=== PATIENT | female | born 1930 | race Caucasian/White ===

== ENCOUNTER 2017-08-22 23:21 | Emergency (ER) | payer MEDICARE, MEDICAID ==
[2017-08-23 00:40] LABS: ADD MAN DIFF? NO
[2017-08-23 00:48] LABS: WHITE BLOOD COUNT 12.6 10^3/ul (4.8-10.8)
[2017-08-23 00:48] LABS: ABNORMAL IP MESSAGE 1; BASOPHILS % 0.2 % (0.0-2.0); EOSINOPHILS # 0.1 10^3/ul (0.0-0.5); EOSINOPHILS % 0.8 % (0.0-7.0); HEMATOCRIT 38.2 % (37.0-47.0); HEMOGLOBIN 12.2 g/dl (12.0-16.0); LYMPHOCYTES # 0.6 10^3/ul (0.8-2.9); MEAN CORPUSCULAR HEMOGLOBIN 28.9 pg (29.0-33.0); MEAN CORPUSCULAR HGB CONC 31.9 g/dl (32.0-37.0); MEAN CORPUSCULAR VOLUME 90.5 fl (82.0-101.0); MEAN PLATELET VOLUME 11.4 fl (7.4-10.4); MONOCYTE # 1.5 10^3/ul (0.3-0.9); MONOCYTES % 12.2 % (0.0-11.0); NEUTROPHIL # 10.3 10^3/ul (1.6-7.5); NEUTROPHILS % 81.4 % (39.0-77.0); PLATELET COUNT 191 10^3/UL (140-415); RED BLOOD COUNT 4.22 10^6/ul (4.20-5.40); RED CELL DISTRIBUTION WIDTH 13.5 % (11.5-14.5)
[2017-08-23 01:02] LABS: URINE PH (Dip) POC 5.5 (5.0-8.5)
[2017-08-23 01:02] LABS: URINE BLOOD (Dip) POC Negative (NEGATIVE); URINE GLUCOSE (Dip) POC Negative (NEGATIVE); URINE KETONES (Dip) POC Negative (NEGATIVE); URINE LEUKOCYTE EST (Dip) POC Trace (NEGATIVE); URINE NITRITE (Dip) POC Negative (NEGATIVE); URINE TOTAL PROTEIN POC Negative (NEGATIVE)
[2017-08-23 01:08] LABS: POSITIVE DIFF @See below; URINE BLOOD (Dip) POC Negative (NEGATIVE); URINE GLUCOSE (Dip) POC Negative (NEGATIVE); URINE KETONES (Dip) POC Negative (NEGATIVE); URINE LEUKOCYTE EST (Dip) POC Trace (NEGATIVE); URINE NITRITE (Dip) POC Negative (NEGATIVE); URINE TOTAL PROTEIN POC Negative (NEGATIVE)
[2017-08-23 01:08] LABS: URINE PH (Dip) POC 5.5 (5.0-8.5)
[2017-08-23 01:39] LABS: ALANINE AMINOTRANSFERASE 22 IU/L (13-69); ALBUMIN 4.1 g/dl (3.3-4.9); ALBUMIN/GLOBULIN RATIO 1.17; ALKALINE PHOSPHATASE 71 IU/L (42-121); ANION GAP 17 (8-16); ASPARTATE AMINO TRANSFERASE 21 IU/L (15-46); BLOOD UREA NITROGEN 34 mg/dl (7-20); CALCIUM 9.4 mg/dl (8.4-10.2); CARBON DIOXIDE 27 mmol/L (21-31); CHLORIDE 104 mmol/L (97-110); CREATININE 1.73 mg/dl (0.44-1.00); GLUCOSE 136 mg/dl (70-220); LIPASE 204 U/L (23-300); SODIUM 144 mmol/L (135-144); TOTAL PROTEIN 7.6 g/dl (6.1-8.1)
[2017-08-23 01:56] LABS: TROPONIN-I < 0.012 ng/ml (0.00-0.12)
[2017-08-23] MEDS: ONDANSETRON 4 MG INJ IV (02:44)
[2017-08-23] MEDS: LOPERAMIDE 2 MG CAP PO (02:44)
[2017-08-23] MEDS: SOD CHLORIDE 0.9% 250 ML IV (02:45)
== END 2017-08-23 07:05 | disposition home or self-care (01) ==
LOC: E/R 23:21
DX: K80.50 Calculus of bile duct without cholangitis or cholecystitis without obstruction (principal); K43.9 Ventral hernia without obstruction or gangrene; D25.9 Leiomyoma of uterus, unspecified; J44.9 Chronic obstructive pulmonary disease, unspecified; E11.22 Type 2 diabetes mellitus with diabetic chronic kidney disease; N18.9 Chronic kidney disease, unspecified; E03.9 Hypothyroidism, unspecified; I12.9 Hypertensive chronic kidney disease with stage 1 through stage 4 chronic kidney disease, or unspecified chronic kidney disease; Z85.43 Personal history of malignant neoplasm of ovary; Z79.82 Long term (current) use of aspirin; Z85.038 Personal history of other malignant neoplasm of large intestine
CPT/HCPCS: 36415; 74176; 76705; 80053; 81003; 83690; 84484; 85025; 93005; 96374; 99285-25

== ENCOUNTER 2017-11-14 20:36 | Observation (INO) | payer MEDICARE, OTHER, MEDICAID ==
[2017-11-14] MEDS: SOD CHLORIDE 0.9% 1,000 ML IV (21:21)
[2017-11-14] MEDS: ONDANSETRON 4 MG INJ IV (21:21)
[2017-11-14 21:31] LABS: ADD MAN DIFF? NO
[2017-11-14 21:33] LABS: BASOPHIL # 0.1 10^3/ul (0.0-0.1); BASOPHILS % 0.7 % (0.0-2.0); EOSINOPHILS # 0.1 10^3/ul (0.0-0.5); EOSINOPHILS % 1.4 % (0.0-7.0); HEMATOCRIT 37.4 % (37.0-47.0); HEMOGLOBIN 11.9 g/dl (12.0-16.0); LYMPHOCYTES # 2.1 10^3/ul (0.8-2.9); LYMPHOCYTES % 21.9 % (15.0-51.0); MEAN CORPUSCULAR HEMOGLOBIN 28.5 pg (29.0-33.0); MEAN CORPUSCULAR HGB CONC 31.8 g/dl (32.0-37.0); MEAN CORPUSCULAR VOLUME 89.7 fl (82.0-101.0); MEAN PLATELET VOLUME 11.1 fl (7.4-10.4); MONOCYTE # 1.2 10^3/ul (0.3-0.9); MONOCYTES % 12.7 % (0.0-11.0); NEUTROPHIL # 6.1 10^3/ul (1.6-7.5); PLATELET COUNT 231 10^3/UL (140-415); RED BLOOD COUNT 4.17 10^6/ul (4.20-5.40); RED CELL DISTRIBUTION WIDTH 14.6 % (11.5-14.5)
[2017-11-14 21:33] LABS: WHITE BLOOD COUNT 9.7 10^3/ul (4.8-10.8)
[2017-11-14 22:03] LABS: ALANINE AMINOTRANSFERASE 16 IU/L (13-69); ALBUMIN 4.2 g/dl (3.3-4.9); ALBUMIN/GLOBULIN RATIO 1.16; ALKALINE PHOSPHATASE 84 IU/L (42-121); ANION GAP 16 (8-16); ASPARTATE AMINO TRANSFERASE 22 IU/L (15-46); BILIRUBIN,INDIRECT 0.4 mg/dl (0-1.1); BILIRUBIN,TOTAL 0.4 mg/dl (0.2-1.3); BLOOD UREA NITROGEN 31 mg/dl (7-20); CALCIUM 9.7 mg/dl (8.4-10.2); CARBON DIOXIDE 29 mmol/L (21-31); CHLORIDE 98 mmol/L (97-110); CREATININE 1.89 mg/dl (0.44-1.00); GLUCOSE 131 mg/dl (70-220); LIPASE 118 U/L (23-300); POTASSIUM 3.4 mmol/L (3.5-5.1); SODIUM 140 mmol/L (135-144); TOTAL PROTEIN 7.8 g/dl (6.1-8.1)
[2017-11-14 22:04] LABS: LACTIC ACID 2.2 mmol/L (0.5-2.0)
[2017-11-14 22:16] LABS: TROPONIN-I < 0.012 ng/ml (0.00-0.12)
[2017-11-14 22:48] LABS: ADD UMIC NO; UR ASCORBIC ACID NEGATIVE (NEGATIVE); UR BILIRUBIN (Dip) NEGATIVE (NEGATIVE); UR BLOOD (Dip) NEGATIVE (NEGATIVE); UR CLARITY CLEAR (CLEAR); UR COLOR STRAW (YELLOW); UR GLUCOSE (Dip) NEGATIVE (NEGATIVE); UR KETONES (Dip) NEGATIVE (NEGATIVE); UR LEUKOCYTE ESTERASE (Dip) NEGATIVE Leu/ul (NEGATIVE); UR NITRITE (Dip) NEGATIVE (NEGATIVE); UR SPECIFIC GRAVITY (Dip) 1.003 (1.003-1.030); UR TOTAL PROTEIN (Dip) NEGATIVE (NEGATIVE); UR UROBILINOGEN (Dip) NEGATIVE (NEGATIVE)
[2017-11-15] MEDS ORDERED: NACL 0.9% 3 ML SYG IV (02:00)
[2017-11-15] MEDS: SOD CHLORIDE 0.9% 1,000 ML IV ×2 (02:46→02:55)
[2017-11-15] MEDS: ONDANSETRON 4 MG INJ IV (02:52)
[2017-11-15] MEDS: morphine 4 MG/ML VIAL IV (02:53)
[2017-11-15] MEDS: METOCLOPRAMIDE 10 MG INJ IV (02:56)
[2017-11-15] MEDS: ENOXAPARIN 40 MG/0.4 ML SYG SC (12:45)
[2017-11-15 15:13] LABS: ANION GAP 11 (8-16); BLOOD UREA NITROGEN 23 mg/dl (7-20); CALCIUM 8.6 mg/dl (8.4-10.2); CARBON DIOXIDE 29 mmol/L (21-31); CHLORIDE 108 mmol/L (97-110); GLUCOSE 112 mg/dl (70-220); SODIUM 144 mmol/L (135-144)
[2017-11-15 15:30] LABS: HEMOGLOBIN A1C 5.9 % (0-5.9)
[2017-11-15 15:37] LABS: LACTIC ACID 1.8 mmol/L (0.5-2.0)
[2017-11-15] MEDS: LORAZEPAM 1 MG TAB PO (16:33)
[2017-11-15] MEDS ORDERED: FUROSEMIDE 20 MG TAB PO (21:00)
[2017-11-15] MEDS: ATORVASTATIN 20 MG TAB PO (21:27)
[2017-11-16 06:02] LABS: ADD MAN DIFF? NO
[2017-11-16 06:07] LABS: BASOPHIL # 0.1 10^3/ul (0.0-0.1); BASOPHILS % 0.6 % (0.0-2.0); EOSINOPHILS # 0.2 10^3/ul (0.0-0.5); EOSINOPHILS % 2.4 % (0.0-7.0); HEMATOCRIT 33.6 % (37.0-47.0); HEMOGLOBIN 10.4 g/dl (12.0-16.0); LYMPHOCYTES # 1.6 10^3/ul (0.8-2.9); LYMPHOCYTES % 16.3 % (15.0-51.0); MEAN CORPUSCULAR HEMOGLOBIN 28.8 pg (29.0-33.0); MEAN CORPUSCULAR VOLUME 93.1 fl (82.0-101.0); MEAN PLATELET VOLUME 11.7 fl (7.4-10.4); MONOCYTE # 1.3 10^3/ul (0.3-0.9); MONOCYTES % 13.4 % (0.0-11.0); NEUTROPHIL # 6.6 10^3/ul (1.6-7.5); NEUTROPHILS % 66.9 % (39.0-77.0); PLATELET COUNT 203 10^3/UL (140-415); RED BLOOD COUNT 3.61 10^6/ul (4.20-5.40); RED CELL DISTRIBUTION WIDTH 15.3 % (11.5-14.5)
[2017-11-16 06:07] LABS: WHITE BLOOD COUNT 9.8 10^3/ul (4.8-10.8)
[2017-11-16 06:33] LABS: ALANINE AMINOTRANSFERASE 22 IU/L (13-69); ALBUMIN 3.3 g/dl (3.3-4.9); ALBUMIN/GLOBULIN RATIO 1.13; ALKALINE PHOSPHATASE 61 IU/L (42-121); ANION GAP 12 (8-16); ASPARTATE AMINO TRANSFERASE 29 IU/L (15-46); BILIRUBIN,INDIRECT 0.4 mg/dl (0-1.1); BILIRUBIN,TOTAL 0.4 mg/dl (0.2-1.3); BLOOD UREA NITROGEN 22 mg/dl (7-20); CALCIUM 8.8 mg/dl (8.4-10.2); CARBON DIOXIDE 31 mmol/L (21-31); CHLORIDE 108 mmol/L (97-110); CREATININE 1.61 mg/dl (0.44-1.00); GLUCOSE 103 mg/dl (70-220); POTASSIUM 3.8 mmol/L (3.5-5.1); SODIUM 147 mmol/L (135-144); TOTAL PROTEIN 6.2 g/dl (6.1-8.1)
[2017-11-16] MEDS: LEVOTHYROXINE 125 MCG TAB PO (06:41)
[2017-11-16] MEDS: PAROXETINE 20 MG TAB PO (08:45)
[2017-11-16] MEDS: FEBUXOSTAT 40 MG TABLET PO (08:48)
[2017-11-16] MEDS: DONEPEZIL 5 MG TAB PO (08:48)
[2017-11-16] MEDS: NEBIVOLOL 5 MG TAB PO (08:48)
[2017-11-16] MEDS: MEMANTINE 10 MG TAB PO (08:48)
[2017-11-16] MEDS: CLOPIDOGREL 75 MG TAB PO (08:48)
[2017-11-16] MEDS ORDERED: TELMISARTAN HYDROCHLOROTHIAZIDE PO (09:00)
[2017-11-16] MEDS: ENOXAPARIN 40 MG/0.4 ML SYG SC (09:30)
[2017-11-16] MEDS: ONDANSETRON 4 MG TAB PO (14:11)
[2017-11-16] MEDS ORDERED: ONDANSETRON 4 MG INJ IV (17:30)
[2017-11-16] MEDS: ATORVASTATIN 20 MG TAB PO (20:28)
[2017-11-17 05:45] LABS: ADD MAN DIFF? NO
[2017-11-17 06:08] LABS: WHITE BLOOD COUNT 9.4 10^3/ul (4.8-10.8)
[2017-11-17 06:08] LABS: BASOPHIL # 0.1 10^3/ul (0.0-0.1); BASOPHILS % 0.6 % (0.0-2.0); EOSINOPHILS # 0.1 10^3/ul (0.0-0.5); EOSINOPHILS % 1.2 % (0.0-7.0); HEMATOCRIT 31.8 % (37.0-47.0); HEMOGLOBIN 10.1 g/dl (12.0-16.0); LYMPHOCYTES # 1.4 10^3/ul (0.8-2.9); LYMPHOCYTES % 14.9 % (15.0-51.0); MEAN CORPUSCULAR HEMOGLOBIN 29.4 pg (29.0-33.0); MEAN CORPUSCULAR HGB CONC 31.8 g/dl (32.0-37.0); MEAN CORPUSCULAR VOLUME 92.7 fl (82.0-101.0); MEAN PLATELET VOLUME 12.3 fl (7.4-10.4); MONOCYTES % 10.7 % (0.0-11.0); NEUTROPHIL # 6.8 10^3/ul (1.6-7.5); NEUTROPHILS % 72.2 % (39.0-77.0); PLATELET COUNT 172 10^3/UL (140-415); RED BLOOD COUNT 3.43 10^6/ul (4.20-5.40); RED CELL DISTRIBUTION WIDTH 15.1 % (11.5-14.5)
[2017-11-17 06:49] LABS: ALANINE AMINOTRANSFERASE 22 IU/L (13-69); ALBUMIN 2.9 g/dl (3.3-4.9); ALBUMIN/GLOBULIN RATIO 1.03; ALKALINE PHOSPHATASE 58 IU/L (42-121); ASPARTATE AMINO TRANSFERASE 28 IU/L (15-46); BILIRUBIN,INDIRECT 0.3 mg/dl (0-1.1); BILIRUBIN,TOTAL 0.3 mg/dl (0.2-1.3); BLOOD UREA NITROGEN 23 mg/dl (7-20); CALCIUM 8.6 mg/dl (8.4-10.2); CARBON DIOXIDE 29 mmol/L (21-31); CREATININE 1.47 mg/dl (0.44-1.00); GLUCOSE 114 mg/dl (70-220); TOTAL PROTEIN 5.7 g/dl (6.1-8.1)
[2017-11-17] MEDS: LEVOTHYROXINE 125 MCG TAB PO (06:55)
[2017-11-17 07:48] LABS: ANION GAP 8 (8-16)
[2017-11-17 07:50] LABS: CHLORIDE 110 mmol/L (97-110); POTASSIUM 4.3 mmol/L (3.5-5.1); SODIUM 143 mmol/L (135-144)
[2017-11-17] MEDS: PAROXETINE 20 MG TAB PO (09:15)
[2017-11-17] MEDS: FEBUXOSTAT 40 MG TABLET PO (09:15)
[2017-11-17] MEDS: CLOPIDOGREL 75 MG TAB PO (09:15)
[2017-11-17] MEDS: NEBIVOLOL 5 MG TAB PO (09:15)
[2017-11-17] MEDS: DONEPEZIL 5 MG TAB PO (09:16)
[2017-11-17] MEDS: MEMANTINE 10 MG TAB PO (09:16)
[2017-11-17] MEDS: ENOXAPARIN 40 MG/0.4 ML SYG SC (09:18)
[2017-11-17] MEDS: ATORVASTATIN 20 MG TAB PO (20:02)
== END 2017-11-17 20:15 | disposition home or self-care (01) ==
LOC: MS2 11-15 08:03 → E/R 20:36
PROVIDERS: Internal Medicine
DX: R11.2 Nausea with vomiting, unspecified (principal); I10 Essential (primary) hypertension; E78.00 Pure hypercholesterolemia, unspecified; E11.9 Type 2 diabetes mellitus without complications; K43.9 Ventral hernia without obstruction or gangrene; M81.0 Age-related osteoporosis without current pathological fracture; Z85.038 Personal history of other malignant neoplasm of large intestine; Z82.49 Family history of ischemic heart disease and other diseases of the circulatory system
CPT/HCPCS: 36415; 71045; 74176; 76705; 80048; 80053; 81003; 82962; 83036; 83605; 83690; 84443; 84484; 85025; 93005; 96374; 96375; 96376; 99285-25

== ENCOUNTER 2018-08-28 18:48 | Emergency (ER) | payer MEDICARE, OTHER ==
[2018-08-28 19:29] LABS: ADD MAN DIFF? NO
[2018-08-28] MEDS: SOD CHLORIDE 0.9% 1,000 ML IV (19:29)
[2018-08-28 19:32] LABS: BASOPHIL # 0.1 10^3/ul (0.0-0.1); BASOPHILS % 0.6 % (0.0-2.0); EOSINOPHILS # 0.1 10^3/ul (0.0-0.5); EOSINOPHILS % 1.2 % (0.0-7.0); HEMATOCRIT 33.2 % (37.0-47.0); HEMOGLOBIN 10.7 g/dl (12.0-16.0); LYMPHOCYTES # 1.7 10^3/ul (0.8-2.9); LYMPHOCYTES % 18.8 % (15.0-51.0); MEAN CORPUSCULAR HEMOGLOBIN 28.4 pg (29.0-33.0); MEAN CORPUSCULAR HGB CONC 32.2 g/dl (32.0-37.0); MEAN CORPUSCULAR VOLUME 88.1 fl (82.0-101.0); MEAN PLATELET VOLUME 11.7 fl (7.4-10.4); MONOCYTE # 1.3 10^3/ul (0.3-0.9); MONOCYTES % 14.5 % (0.0-11.0); NEUTROPHIL # 5.8 10^3/ul (1.6-7.5); NEUTROPHILS % 64.6 % (39.0-77.0); PLATELET COUNT 216 10^3/UL (140-415); RED BLOOD COUNT 3.77 10^6/ul (4.20-5.40); RED CELL DISTRIBUTION WIDTH 14.1 % (11.5-14.5)
[2018-08-28 19:48] LABS: ANION GAP 12 (5-13); BLOOD UREA NITROGEN 27 mg/dl (7-20); CALCIUM 9.3 mg/dl (8.4-10.2); CARBON DIOXIDE 26 mmol/L (21-31); CHLORIDE 102 mmol/L (97-110); CREATININE 1.76 mg/dl (0.44-1.00); GLUCOSE 109 mg/dl (70-220); POTASSIUM 3.7 mmol/L (3.5-5.1); SODIUM 140 mmol/L (135-144)
== END 2018-08-28 21:30 | disposition home or self-care (01) ==
LOC: E/R 21:30
DX: R68.2 Dry mouth, unspecified (principal); I10 Essential (primary) hypertension; E11.9 Type 2 diabetes mellitus without complications; Z02.89 Encounter for other administrative examinations; Z79.01 Long term (current) use of anticoagulants; Z79.84 Long term (current) use of oral hypoglycemic drugs; Z85.43 Personal history of malignant neoplasm of ovary
CPT/HCPCS: 36415; 80048; 85025; 99284-25

== ENCOUNTER 2018-11-29 17:19 | Inpatient (IN) | payer MEDICARE, OTHER ==
[2018-11-29 18:15] LABS: ADD MAN DIFF? NO
[2018-11-29 18:17] LABS: WHITE BLOOD COUNT 10.6 10^3/ul (4.8-10.8)
[2018-11-29 18:17] LABS: BASOPHIL # 0.1 10^3/ul (0.0-0.1); BASOPHILS % 0.6 % (0.0-2.0); EOSINOPHILS # 0.1 10^3/ul (0.0-0.5); EOSINOPHILS % 1.3 % (0.0-7.0); HEMATOCRIT 31.4 % (37.0-47.0); HEMOGLOBIN 9.8 g/dl (12.0-16.0); LYMPHOCYTES # 1.2 10^3/ul (0.8-2.9); LYMPHOCYTES % 11.2 % (15.0-51.0); MEAN CORPUSCULAR HEMOGLOBIN 27.9 pg (29.0-33.0); MEAN CORPUSCULAR HGB CONC 31.2 g/dl (32.0-37.0); MEAN CORPUSCULAR VOLUME 89.5 fl (82.0-101.0); MEAN PLATELET VOLUME 10.8 fl (7.4-10.4); MONOCYTES % 9.9 % (0.0-11.0); NEUTROPHIL # 8.1 10^3/ul (1.6-7.5); NEUTROPHILS % 76.3 % (39.0-77.0); PLATELET COUNT 207 10^3/UL (140-415); RED BLOOD COUNT 3.51 10^6/ul (4.20-5.40); RED CELL DISTRIBUTION WIDTH 14.3 % (11.5-14.5)
[2018-11-29] MEDS: ONDANSETRON 4 MG INJ IV (18:28)
[2018-11-29] MEDS: ASPIRIN 325 MG TAB PO (18:29)
[2018-11-29] MEDS: NITROGLYCERIN 2% 1 GM OINT PKT TD (18:32)
[2018-11-29] MEDS: FUROSEMIDE 40 MG INJ IV (18:32)
[2018-11-29] MEDS: morphine 2 MG INJ IV (18:33)
[2018-11-29 18:36] LABS: INR 1.02; PROTIME 13.5 Sec (11.9-14.9); PT RATIO 1.1
[2018-11-29 18:37] LABS: PARTIAL THROMBOPLASTIN TIME 32.8 Sec (23.0-35.0)
[2018-11-29 18:38] LABS: ANION GAP 7 (5-13); BLOOD UREA NITROGEN 22 mg/dl (7-20); CALCIUM 8.8 mg/dl (8.4-10.2); CARBON DIOXIDE 26 mmol/L (21-31); CHLORIDE 109 mmol/L (97-110); CREATININE 1.31 mg/dl (0.44-1.00); GLUCOSE 132 mg/dl (70-220); POTASSIUM 4.2 mmol/L (3.5-5.1); SODIUM 142 mmol/L (135-144)
[2018-11-29 18:50] LABS: B-TYPE NATRIURETIC PEPTIDE 6240 PG/ML (0-450); TROPONIN-I < 0.012 ng/ml (0.000-0.120)
[2018-11-29] MEDS ORDERED: ONDANSETRON 4 MG INJ IV ×2 (19:30→20:30)
[2018-11-29] MEDS ORDERED: ACETAMINOPHEN 325 MG TAB PO ×2 (19:30→20:30)
[2018-11-29] MEDS ORDERED: DOCUSATE SODIUM 100 MG CAP PO (20:30)
[2018-11-29] MEDS ORDERED: NACL 0.9% 3 ML SYG IV (20:30)
[2018-11-29] MEDS ORDERED: NITROGLYCERIN (SL) 0.4 MG TAB SL (20:30)
[2018-11-29] MEDS: POTASSIUM CHLORIDE (SR) 20 MEQ TAB PO ×2 (23:16→23:48)
[2018-11-29] MEDS: MAGNESIUM SULFATE 1 GM/D5W 100 ML IVPB (23:16)
[2018-11-30 02:42] LABS: CREATINE KINASE 45 IU/L (23-200)
[2018-11-30 02:56] LABS: CK INDEX 2.6; CK-MB 1.19 ng/ml (0.0-2.4); TROPONIN-I 0.024 ng/ml (0.000-0.120)
[2018-11-30] MEDS: HEPARIN 5,000 UNIT/1 ML VIAL SC ×4 (03:51→22:37)
[2018-11-30] MEDS: LEVOTHYROXINE 112 MCG TAB PO (07:16)
[2018-11-30] MEDS: MEMANTINE 10 MG TAB PO (08:30)
[2018-11-30] MEDS: CLOPIDOGREL 75 MG TAB PO (08:31)
[2018-11-30] MEDS: DONEPEZIL 5 MG TAB PO (08:31)
[2018-11-30] MEDS: FUROSEMIDE 40 MG INJ IV (08:31)
[2018-11-30] MEDS: POTASSIUM CHLORIDE (SR) 10 MEQ TAB PO (08:31)
[2018-11-30 08:33] LABS: ADD MAN DIFF? NO
[2018-11-30 08:40] LABS: BASOPHIL # 0.1 10^3/ul (0.0-0.1); BASOPHILS % 0.7 % (0.0-2.0); EOSINOPHILS # 0.2 10^3/ul (0.0-0.5); EOSINOPHILS % 2.1 % (0.0-7.0); HEMATOCRIT 27.7 % (37.0-47.0); HEMOGLOBIN 8.8 g/dl (12.0-16.0); LYMPHOCYTES # 1.3 10^3/ul (0.8-2.9); LYMPHOCYTES % 18.5 % (15.0-51.0); MEAN CORPUSCULAR HEMOGLOBIN 29.1 pg (29.0-33.0); MEAN CORPUSCULAR HGB CONC 31.8 g/dl (32.0-37.0); MEAN CORPUSCULAR VOLUME 91.7 fl (82.0-101.0); MONOCYTES % 13.5 % (0.0-11.0); NEUTROPHIL # 4.7 10^3/ul (1.6-7.5); NEUTROPHILS % 64.9 % (39.0-77.0); PLATELET COUNT 186 10^3/UL (140-415); RED BLOOD COUNT 3.02 10^6/ul (4.20-5.40); RED CELL DISTRIBUTION WIDTH 14.5 % (11.5-14.5)
[2018-11-30 08:40] LABS: WHITE BLOOD COUNT 7.3 10^3/ul (4.8-10.8)
[2018-11-30 08:45] LABS: HEMOGLOBIN A1C 5.6 % (0-5.9)
[2018-11-30 08:55] LABS: CREATINE KINASE 40 IU/L (23-200)
[2018-11-30 08:57] LABS: ALANINE AMINOTRANSFERASE 112 IU/L (13-69); ALBUMIN 3.4 g/dl (3.3-4.9); ALKALINE PHOSPHATASE 125 IU/L (42-121); ANION GAP 5 (5-13); ASPARTATE AMINO TRANSFERASE 46 IU/L (15-46); BILIRUBIN,INDIRECT 0.6 mg/dl (0-1.1); BILIRUBIN,TOTAL 0.6 mg/dl (0.2-1.3); BLOOD UREA NITROGEN 25 mg/dl (7-20); CARBON DIOXIDE 30 mmol/L (21-31); CHLORIDE 108 mmol/L (97-110); CHOLESTEROL 137 mg/dl (100-200); GLUCOSE 94 mg/dl (70-220); HDL CHOLESTEROL 45 mg/dl (33-92); LDL CHOLESTEROL,CALCULATED 74 mg/dl; MAGNESIUM 2.4 mg/dl (1.7-2.5); POTASSIUM 4.8 mmol/L (3.5-5.1); SODIUM 143 mmol/L (135-144); TRIGLYCERIDES 90 mg/dl (0-149)
[2018-11-30 09:08] LABS: CK INDEX 2.6; CK-MB 1.05 ng/ml (0.0-2.4); TROPONIN-I 0.017 ng/ml (0.000-0.120)
[2018-11-30 09:31] LABS: THYROID STIMULATING HORMONE < 0.015 MIU/L (0.465-4.680)
[2018-11-30] MEDS: ATORVASTATIN 20 MG TAB PO (21:30)
[2018-11-30] MEDS: DOCUSATE SODIUM 100 MG CAP PO (21:30)
[2018-12-01 05:20] LABS: ADD MAN DIFF? NO
[2018-12-01 05:24] LABS: BASOPHIL # 0.1 10^3/ul (0.0-0.1); BASOPHILS % 0.6 % (0.0-2.0); EOSINOPHILS # 0.4 10^3/ul (0.0-0.5); HEMATOCRIT 28.1 % (37.0-47.0); HEMOGLOBIN 8.9 g/dl (12.0-16.0); LYMPHOCYTES # 1.5 10^3/ul (0.8-2.9); LYMPHOCYTES % 18.2 % (15.0-51.0); MEAN CORPUSCULAR HEMOGLOBIN 28.3 pg (29.0-33.0); MEAN CORPUSCULAR HGB CONC 31.7 g/dl (32.0-37.0); MEAN CORPUSCULAR VOLUME 89.5 fl (82.0-101.0); MEAN PLATELET VOLUME 12.1 fl (7.4-10.4); MONOCYTES % 11.8 % (0.0-11.0); NEUTROPHIL # 5.3 10^3/ul (1.6-7.5); NEUTROPHILS % 64.2 % (39.0-77.0); PLATELET COUNT 189 10^3/UL (140-415); RED BLOOD COUNT 3.14 10^6/ul (4.20-5.40); RED CELL DISTRIBUTION WIDTH 14.5 % (11.5-14.5)
[2018-12-01 05:24] LABS: WHITE BLOOD COUNT 8.3 10^3/ul (4.8-10.8)
[2018-12-01 05:52] LABS: ALANINE AMINOTRANSFERASE 83 IU/L (13-69); ALBUMIN 3.3 g/dl (3.3-4.9); ALKALINE PHOSPHATASE 123 IU/L (42-121); ANION GAP 5 (5-13); ASPARTATE AMINO TRANSFERASE 29 IU/L (15-46); BILIRUBIN,INDIRECT 0.5 mg/dl (0-1.1); BILIRUBIN,TOTAL 0.5 mg/dl (0.2-1.3); BLOOD UREA NITROGEN 34 mg/dl (7-20); CALCIUM 8.6 mg/dl (8.4-10.2); CARBON DIOXIDE 30 mmol/L (21-31); CHLORIDE 106 mmol/L (97-110); CREATININE 1.78 mg/dl (0.44-1.00); GLUCOSE 96 mg/dl (70-220); POTASSIUM 4.1 mmol/L (3.5-5.1); SODIUM 141 mmol/L (135-144); TOTAL PROTEIN 6.3 g/dl (6.1-8.1)
[2018-12-01 05:55] LABS: B-TYPE NATRIURETIC PEPTIDE 3740 PG/ML (0-450)
[2018-12-01 06:12] LABS: MAGNESIUM 2.3 mg/dl (1.7-2.5)
[2018-12-01 06:19] LABS: FREE T4 (FREE THYROXINE) 1.69 ng/dl (0.85-1.93)
[2018-12-01 06:37] LABS: HEPATITIS B SURFACE ANTIGEN NEGATIVE (NEGATIVE)
[2018-12-01 06:53] LABS: HEPATITIS B SURFACE ANTIBODY NEGATIVE (NEGATIVE)
[2018-12-01 06:54] LABS: HEPATITIS C VIRAL ANTIBODY NEGATIVE (NEGATIVE)
[2018-12-01] MEDS: HEPARIN 5,000 UNIT/1 ML VIAL SC ×3 (07:01→21:42)
[2018-12-01] MEDS: DONEPEZIL 5 MG TAB PO (08:33)
[2018-12-01] MEDS: DOCUSATE SODIUM 100 MG CAP PO ×2 (08:33→21:37)
[2018-12-01] MEDS: CLOPIDOGREL 75 MG TAB PO (08:34)
[2018-12-01] MEDS: MEMANTINE 10 MG TAB PO (08:34)
[2018-12-01 21:04] LABS: ADD UMIC YES; UR ASCORBIC ACID NEGATIVE (NEGATIVE); UR BILIRUBIN (Dip) NEGATIVE (NEGATIVE); UR BLOOD (Dip) NEGATIVE (NEGATIVE); UR CLARITY CLEAR (CLEAR); UR COLOR YELLOW (YELLOW); UR GLUCOSE (Dip) NEGATIVE (NEGATIVE); UR KETONES (Dip) NEGATIVE (NEGATIVE); UR LEUKOCYTE ESTERASE (Dip) 1+ Leu/ul (NEGATIVE); UR NITRITE (Dip) NEGATIVE (NEGATIVE); UR RBC 0 /HPF (0-5); UR SPECIFIC GRAVITY (Dip) 1.013 (1.003-1.030); UR TOTAL PROTEIN (Dip) NEGATIVE (NEGATIVE); UR UROBILINOGEN (Dip) NEGATIVE (NEGATIVE); UR WBC 3 /HPF (0-5)
[2018-12-01 21:10] LABS: SODIUM,URINE RANDOM 34 mmol/L (30-90)
[2018-12-01 21:10] LABS: CREATININE,URINE RANDOM 99.98 mg/dl (20-320)
[2018-12-01] MEDS: ATORVASTATIN 20 MG TAB PO (21:37)
[2018-12-02] MEDS: HEPARIN 5,000 UNIT/1 ML VIAL SC ×3 (06:20→21:58)
[2018-12-02 06:40] LABS: ADD MAN DIFF? NO
[2018-12-02 06:46] LABS: BASOPHIL # 0.1 10^3/ul (0.0-0.1); EOSINOPHILS # 0.4 10^3/ul (0.0-0.5); EOSINOPHILS % 5.4 % (0.0-7.0); HEMATOCRIT 26.9 % (37.0-47.0); HEMOGLOBIN 8.4 g/dl (12.0-16.0); LYMPHOCYTES # 1.5 10^3/ul (0.8-2.9); LYMPHOCYTES % 21.9 % (15.0-51.0); MEAN CORPUSCULAR HEMOGLOBIN 28.4 pg (29.0-33.0); MEAN CORPUSCULAR HGB CONC 31.2 g/dl (32.0-37.0); MEAN CORPUSCULAR VOLUME 90.9 fl (82.0-101.0); MEAN PLATELET VOLUME 12.5 fl (7.4-10.4); MONOCYTE # 0.9 10^3/ul (0.3-0.9); MONOCYTES % 13.5 % (0.0-11.0); NEUTROPHILS % 58.1 % (39.0-77.0); PLATELET COUNT 186 10^3/UL (140-415); RED BLOOD COUNT 2.96 10^6/ul (4.20-5.40); RED CELL DISTRIBUTION WIDTH 14.5 % (11.5-14.5)
[2018-12-02 06:46] LABS: WHITE BLOOD COUNT 6.9 10^3/ul (4.8-10.8)
[2018-12-02 07:17] LABS: MAGNESIUM 2.3 mg/dl (1.7-2.5)
[2018-12-02 07:17] LABS: ANION GAP 5 (5-13); BLOOD UREA NITROGEN 37 mg/dl (7-20); CALCIUM 8.4 mg/dl (8.4-10.2); CARBON DIOXIDE 30 mmol/L (21-31); CHLORIDE 107 mmol/L (97-110); CREATININE 1.75 mg/dl (0.44-1.00); GLUCOSE 90 mg/dl (70-220); POTASSIUM 4.3 mmol/L (3.5-5.1); SODIUM 142 mmol/L (135-144)
[2018-12-02 07:20] LABS: B-TYPE NATRIURETIC PEPTIDE 2740 PG/ML (0-450)
[2018-12-02] MEDS: DONEPEZIL 5 MG TAB PO (08:38)
[2018-12-02] MEDS: MEMANTINE 10 MG TAB PO (08:38)
[2018-12-02] MEDS: DOCUSATE SODIUM 100 MG CAP PO ×2 (08:38→21:51)
[2018-12-02] MEDS: CLOPIDOGREL 75 MG TAB PO (08:38)
[2018-12-02] MEDS: BISACODYL (EC) 5 MG TAB PO (08:38)
[2018-12-02] MEDS: ATORVASTATIN 20 MG TAB PO (21:51)
[2018-12-03 05:38] LABS: ADD MAN DIFF? NO
[2018-12-03 05:43] LABS: BASOPHIL # 0.1 10^3/ul (0.0-0.1); BASOPHILS % 0.9 % (0.0-2.0); EOSINOPHILS # 0.3 10^3/ul (0.0-0.5); EOSINOPHILS % 5.4 % (0.0-7.0); HEMATOCRIT 27.3 % (37.0-47.0); HEMOGLOBIN 8.5 g/dl (12.0-16.0); LYMPHOCYTES # 1.1 10^3/ul (0.8-2.9); LYMPHOCYTES % 19.8 % (15.0-51.0); MEAN CORPUSCULAR HEMOGLOBIN 28.1 pg (29.0-33.0); MEAN CORPUSCULAR HGB CONC 31.1 g/dl (32.0-37.0); MEAN CORPUSCULAR VOLUME 90.1 fl (82.0-101.0); MEAN PLATELET VOLUME 10.8 fl (7.4-10.4); MONOCYTE # 0.8 10^3/ul (0.3-0.9); MONOCYTES % 14.6 % (0.0-11.0); NEUTROPHIL # 3.4 10^3/ul (1.6-7.5); NEUTROPHILS % 59.1 % (39.0-77.0); PLATELET COUNT 190 10^3/UL (140-415); RED BLOOD COUNT 3.03 10^6/ul (4.20-5.40); RED CELL DISTRIBUTION WIDTH 14.3 % (11.5-14.5)
[2018-12-03 05:43] LABS: WHITE BLOOD COUNT 5.8 10^3/ul (4.8-10.8)
[2018-12-03 06:14] LABS: MAGNESIUM 2.3 mg/dl (1.7-2.5)
[2018-12-03 06:14] LABS: PHOSPHORUS 3.8 mg/dl (2.5-4.9)
[2018-12-03] MEDS: HEPARIN 5,000 UNIT/1 ML VIAL SC (06:47)
[2018-12-03 07:07] LABS: ANION GAP 4 (5-13); BLOOD UREA NITROGEN 33 mg/dl (7-20); CALCIUM 8.6 mg/dl (8.4-10.2); CARBON DIOXIDE 29 mmol/L (21-31); CHLORIDE 110 mmol/L (97-110); CREATININE 1.51 mg/dl (0.44-1.00); GLUCOSE 100 mg/dl (70-220); POTASSIUM 4.3 mmol/L (3.5-5.1); SODIUM 143 mmol/L (135-144)
[2018-12-03] MEDS: CLOPIDOGREL 75 MG TAB PO (08:54)
[2018-12-03] MEDS: FUROSEMIDE 20 MG TAB PO (08:55)
[2018-12-03] MEDS: DONEPEZIL 5 MG TAB PO (08:55)
[2018-12-03] MEDS: MEMANTINE 10 MG TAB PO (08:55)
[2018-12-03] MEDS: DOCUSATE SODIUM 100 MG CAP PO (08:55)
[2018-12-03 14:31] LABS: CREATININE, RANDOM URINE 98 mg/dL (20-275); MICROALBUMIN 0.8 mg/dL; MICROALBUMIN/CREATININE RATIO 8 (<30)
== END 2018-12-03 13:00 | disposition home health service (06) | DRG 291 ==
LOC: 6WM 19:17 → E/R 17:19
DX: I13.0 Hypertensive heart and chronic kidney disease with heart failure and stage 1 through stage 4 chronic kidney disease, or unspecified chronic kidney disease (principal); J96.00 Acute respiratory failure, unspecified whether with hypoxia or hypercapnia; I50.33 Acute on chronic diastolic (congestive) heart failure; I16.1 Hypertensive emergency; N17.9 Acute kidney failure, unspecified; N18.9 Chronic kidney disease, unspecified; R00.1 Bradycardia, unspecified; D50.9 Iron deficiency anemia, unspecified; E03.9 Hypothyroidism, unspecified; F03.90 Unspecified dementia, unspecified severity, without behavioral disturbance, psychotic disturbance, mood disturbance, and anxiety
CPT/HCPCS: 36415; 71045; 76775; 80048; 80053; 80061; 81001; 81003; 82043; 82550; 82553; 83036; 83735; 83880; 84100; 84155; 84300; 84439; 84443; 84484; 85025; 85610; 85730; 86706; 86803; 87340; 93005; 93306; 96374; 96375; 99285-25